=== PATIENT | female | born 1975 | race Caucasian/White ===

== ENCOUNTER 2019-05-04 00:16 | Emergency (ER) | payer SELFPAY ==
[~2019-05-04] VITALS: Ht 162.6 cm; Wt 63.5 kg
[2019-05-04 00:27] VITALS: BP 152/84
== END 2019-05-04 00:36 | disposition left against medical advice (07) ==
LOC: ER 00:21
DX: R07.89 Other chest pain (principal); Z53.21 Procedure and treatment not carried out due to patient leaving prior to being seen by health care provider
CPT/HCPCS: 93005